=== PATIENT | female | born 1970 | race Caucasian/White ===

== ENCOUNTER 2017-06-03 13:56 | Emergency (ER) | payer OTHER | END 2017-06-03 14:18 | disposition left against medical advice (07) | LOC: DL.ED 13:56 | DX: Z53.21 Procedure and treatment not carried out due to patient leaving prior to being seen by health care provider (principal) ==

== ENCOUNTER 2017-07-07 08:50 | Day surgery (SDC) | payer BC, OTHER ==
[~2017-07-07 08:50] MED LIST: Midazolam 1 MG/ML 2 ML SDV ONE; fentaNYL 100 MCG/2 ML SDV ONE
[2017-07-07] MEDS ORDERED: Lidocaine 2% 20 ML MDV INJECT ONE (08:51)
[2017-07-07] MEDS ORDERED: Propofol 200 MG/20 ML SDV IV ONE (08:51)
[2017-07-07] MEDS ORDERED: Lactated Ringers 1,000 ML IV SCH (09:30)
--- NOTE | 2017-07-07 09:49 | PCM.PREANE ---
Preanesthetic Assessment - Procedure Proposed Procedure: Colonoscopy - Anesthesia/Transfusion/Family Hx Anesthesia History: Prior Anesthesia Without Reaction Family History of Anesthesia Reaction: No Transfusion History: No Prior Transfusion(s) Intubation History: Unknown - Review of Systems General: No Symptoms Pulmonary: No Symptoms Cardiovascular: No Symptoms Gastrointestinal: No Symptoms Neurological: No Symptoms Other: Reports: None - Physical Assessment NPO Status Date: 07/06/17 NPO Status Time: 23:00 O2 Sat by Pulse Oximetry: 98 Respiratory Rate: 16 Vital Signs: Last Vital Signs Temp 97.2 F 07/07/17 09:05 Pulse 67 07/07/17 09:05 Resp 16 07/07/17 09:05 BP 113/61 07/07/17 09:05 Pulse Ox 98 07/07/17 09:05 Height: 1.55 m Weight: 55.792 kg ASA Class: 1 Mental Status: Alert & Oriented x3 Airway Class: Mallampati = 2 Dentition: Reports: Normal Dentition Thyro-Mental Finger Breadths: 3 Mouth Opening Finger Breadths: 3 ROM/Head Extension: Full Lungs: Clear to Auscultation, Normal Respiratory Effort Cardiovascular: Regular Rate, Regular Rhythm - Allergies Allergies/Adverse Reactions: Allergies Allergy/AdvReac Type Severity Reaction Status Date / Time codeine Allergy Itching Verified 07/07/17 09:27 venom-honey bee Allergy Anaphylactic Verified 07/07/17 09:27 Shock - Blood Blood Available: No Product(s) Available: None - Anesthesia Plan Med Last Dose Date: 07/06/17 Med Last Dose Time: 20:00 - Acknowledgements Anesthesia Type Planned: General Anesthesia (R/B of general anesthesia is discussed with patient and signed consent), MAC Pt an Appropriate Candidate for the Planned Anesthesia: Yes Alternatives and Risks of Anesthesia Discussed w Pt/Guardian: Yes Pt/Guardian Understands and Agrees with Anesthesia Plan: Yes PreAnesthesia Questionnaire - Past Health History Medical/Surgical History: Denies Medical/Surgical History HEENT History: Reports: Impaired Vision Cardiovascular History: Reports: None Respiratory History: Reports: Other (See Below) Other Respiratory History: 07/06/17 PATIENT REPORTS 'SPOT' ON LUNG CT Gastrointestinal History: Reports: Chronic Diarrhea, Other (See Below) Other Gastrointestinal History: Vomiting with blood noted. Black stools Genitourinary History: Reports: None [employer] History: Reports: Polycystic Ovaries, Neurological History: Reports: None Psychiatric History: Reports: Anxiety Endocrine/Metabolic History: Reports: None Hematologic History: Reports: None Immunologic History: Reports: None Oncologic (Cancer) History: Reports: None, Uterine Dermatologic History: Reports: None - Past Surgical History Head Surgeries/Procedures: Reports: None HEENT Surgical History: Reports: None Cardiovascular Surgical History: Reports: None Respiratory Surgical History: Reports: None GI Surgical History: Reports: Appendectomy, Colonoscopy Female Surgical History: Reports: Breast Biopsy, Hysterectomy Endocrine Surgical History: Reports: None Neurological Surgical History: Reports: None Musculoskeletal Surgical History: Reports: Other (See Below) Other Musculoskeletal Surgeries/Procedures:: RIGHT FOOT ORIF D/T FRACTURE Oncologic Surgical History: Reports: Lumpectomy Dermatological Surgical History: Reports: None - SUBSTANCE USE Smoking Status *Q: Current Some Day Smoker Tobacco Use Within Last Twelve Months: Cigarettes Recreational Drug Use History: No - HOME MEDS Home Medications: Home Meds traMADol [Ultram] 1 tab PO BID PRN 07/06/17 [History] - CURRENT (IN HOUSE) MEDS Current Meds: Current Medications Lactated Ringer's (Ringers, Lactated) 1,000 mls @ 100 mls/hr IV ASDIRECTED NORMA Last Admin: 07/07/17 09:37 Dose: 100 mls/hr Discontinued Medications Fentanyl (Sublimaze) Confirm Administered Dose 200 mcg .ROUTE .STK-MED ONE Stop: 07/07/17 07:59 Midazolam HCl (Versed 1 Mg/Ml) Confirm Administered Dose 6 mg .ROUTE .STK-MED ONE Stop: 07/07/17 07:59
[2017-07-07] MEDS ORDERED: Propofol 200 MG/20 ML SDV ONE (09:50)
[2017-07-07] MEDS ORDERED: Lidocaine 2% 20 ML MDV ONE (09:50)
--- NOTE | 2017-07-07 10:43 | PCM.POSTAN ---
POST ANESTHESIA ASSESSMENT - MENTAL STATUS Mental Status: Alert, Oriented - VITAL SIGNS Pulse Rate: 80 SaO2: 99 Resp Rate: 18 Blood Pressure: 92/48 Temperature: 98.0 F - RESPIRATORY Respiratory Status: Airway Patent, O2 Saturation Stable - CARDIOVASCULAR CV Status: Pulse Rate WNL, Blood Pressure Stable - GASTROINTESTINAL GI Status: No Symptoms - PAIN Pain Score: 0 - POST OP HYDRATION Hydration Status: Adequate & Stable
[2017-07-07 12:13] VITALS: BP 114/65
--- NOTE | 2017-07-07 13:43 | OR ---
DATE: 07/07/2017 PREOPERATIVE DIAGNOSES: 1. Left lower quadrant abdominal pain. 2. Rectal bleeding/dark stools. POSTOPERATIVE DIAGNOSES: 1. Left lower quadrant abdominal pain. 2. Rectal bleeding/dark stools. 3. Normal colonoscopy. PROCEDURE: Diagnostic colonoscopy. ASSESSMENT: 1. Right colon random biopsies. 2. Transverse colon random biopsies. 3. Left colon random biopsy. 4. Rectum random biopsies. ESTIMATED BLOOD LOSS: Minimal. TYPE OF ANESTHESIA: IV sedation by Anesthesia assist. COMPLICATIONS: None. ATTENDING SURGEON: Pablo Mccartney MD [employer] FORESTER SURGEON: Jeovanny Wallis, PGY-III, . INDICATION FOR PROCEDURE: Marina Houston is a 47-year-old female who presents with continued left lower quadrant abdominal pain, who is having intermittent dark stools with blood mixed in. There is concern for intermittent change with occasional diarrhea. Last colonoscopy was 10 years ago that was normal by the patient report. The risks and benefits of the procedure were discussed with the patient and wished to proceed with surgery at this time. DETAILS OF THE PROCEDURE: The patient was brought to the procedure room, placed in the left lateral decubitus position. IV sedation was given by anesthesia. Procedural time-out was performed, and all were in agreement. The endoscope was introduced and traversed the colon to the cecum without any obvious large masses or polyps. Once in the cecum, a picture was obtained of the cecum showing confirmation. During withdrawal, random biopsies were taken. Biopsies were taken using cold forceps. Withdrawal time was over 6 minutes. Again, grossly appearing normal, without any signs of polyps or large masses present. No obvious signs of colitis present. We will await random biopsies for followup. She was transferred to PACU in stable condition. If she continues to have pain, she may require a diagnostic laparoscopy for further workup of her left lower quadrant abdominal pain. Dr. aPblo Mccartney was present and directed all portions of this procedure. [facility] /[id number] CC: Carolina Katz PA-C [facility]
== END 2017-07-07 11:40 | disposition home or self-care (01) ==
LOC: MERGE 08:50 → DL.ENDO 08:50
PROVIDERS: ATTEND Surgery
DX: K62.5 Hemorrhage of anus and rectum (principal); R10.32 Left lower quadrant pain; R19.4 Change in bowel habit; Z88.5 Allergy status to narcotic agent; Z91.030 Bee allergy status
CPT/HCPCS: 45380; J2704; J7120

== ENCOUNTER 2017-07-24 07:49 | Day surgery (SDC) | payer BC, OTHER ==
[2017-07-24] MEDS ORDERED: Neostigmine Methylsulfate 10 MG/10 ML MDV IV ONE (07:50)
[2017-07-24] MEDS ORDERED: Ondansetron 4 MG/2 ML SDV IV ONE (07:50)
[2017-07-24] MEDS ORDERED: Midazolam 1 MG/ML 2 ML SDV IV ONE (07:50)
[2017-07-24] MEDS ORDERED: Propofol 200 MG/20 ML SDV IV ONE (07:50)
[2017-07-24] MEDS ORDERED: Succinylcholine 200 MG/10 ML MDV IV ONE (07:50)
[2017-07-24] MEDS ORDERED: fentaNYL 100 MCG/2 ML SDV IV ONE (07:50)
[2017-07-24] MEDS ORDERED: Glycopyrrolate 0.2 MG/ML 2 ML SDV IV ONE (07:50)
[2017-07-24] MEDS ORDERED: Rocuronium 50 MG/5 ML Vial IV ONE (07:50)
[2017-07-24] MEDS ORDERED: Ketorolac 30 MG/ML SDV IVPUSH ONE (07:50)
[2017-07-24] MEDS ORDERED: Lactated Ringers 1,000 ML IV SCH (08:00)
[2017-07-24] MEDS ORDERED: Midazolam 1 MG/ML 2 ML SDV ONE (08:36)
[2017-07-24] MEDS ORDERED: Ketorolac 30 MG/ML SDV ONE (08:37)
[2017-07-24] MEDS ORDERED: Lidocaine 2% 20 ML MDV ONE (08:37)
[2017-07-24] MEDS ORDERED: Neostigmine Methylsulfate 10 MG/10 ML MDV ONE (08:37)
[2017-07-24] MEDS ORDERED: fentaNYL 100 MCG/2 ML SDV ONE (08:37)
[2017-07-24] MEDS ORDERED: Ondansetron 4 MG/2 ML SDV ONE (08:37)
[2017-07-24] MEDS ORDERED: Glycopyrrolate 0.2 MG/ML 2 ML SDV ONE (08:37)
[2017-07-24] MEDS ORDERED: Propofol 200 MG/20 ML SDV ONE (08:37)
[2017-07-24] MEDS ORDERED: Succinylcholine 200 MG/10 ML MDV ONE (08:38)
[2017-07-24] MEDS ORDERED: Rocuronium 50 MG/5 ML Vial ONE (08:38)
--- NOTE | 2017-07-24 13:28 | OR ---
DATE: 07/24/2017 PREOPERATIVE DIAGNOSIS: Chronic left lower quadrant abdominal pain and chronic diarrhea. POSTOPERATIVE DIAGNOSIS: Chronic left lower quadrant abdominal pain and chronic diarrhea. PROCEDURE: Diagnostic laparoscopy with multiple photos. ANESTHESIA: General. SPECIMEN: None. OPERATIVE FINDINGS: Normal. INDICATION FOR PROCEDURE: This 47-year-old female has significant left lower quadrant abdominal pain extending down into the groin. She has a CAT scan that is basically normal with a small left ovarian cyst. Colonoscopy 2 weeks ago was normal without evidence of Crohn disease or colitis as a factor for her diarrhea. PROCEDURE IN DETAIL: After adequate preparation, a 5-mm trocar was placed in the left upper quadrant after insufflation. A second 5-mm trocar was placed in the infraumbilical area. Examination of the abdomen is basically normal. Photographs of the cecum, liver, right and left ovaries, and sigmoid were taken. There is no evidence of creeping fat indicating Crohn disease. The bowel wall is not thickened either in the small or large bowel. The stomach appears to be normal. I was able to see the right and left ovary, and they do have few small cysts but nothing significant. She has had a hysterectomy. The abdomen was desufflated, and trocars were removed. [facility] /[id number]
[2017-07-24 13:35] VITALS: BP 119/64
== END 2017-07-24 12:50 | disposition home or self-care (01) ==
LOC: DL.SDS 07:49 → MERGE 07:49 → DL.SDS 12:50
PROVIDERS: ATTEND Surgery
DX: N83.201 Unspecified ovarian cyst, right side (principal); N83.202 Unspecified ovarian cyst, left side; R10.32 Left lower quadrant pain; G89.29 Other chronic pain; F17.200 Nicotine dependence, unspecified, uncomplicated; Z90.710 Acquired absence of both cervix and uterus; Z88.5 Allergy status to narcotic agent; Z91.030 Bee allergy status
CPT/HCPCS: 49320; J0330; J1885; J2250; J2405; J2704; J2710; J3010; J7120; J3490

== ENCOUNTER 2020-01-22 08:14 | Day surgery (SDC) | payer BC ==
[~2020-01-22 08:14] MED LIST changes: +Benzocaine 20% Topical Spray UD MUCMEM ONE
[2020-01-22] MEDS ORDERED: Midazolam 1 MG/ML 2 ML SDV IV ONE ×9 (08:15→09:17)
[2020-01-22] MEDS ORDERED: fentaNYL 100 MCG/2 ML SDV IV ONE ×6 (08:15→09:18)
[2020-01-22] MEDS ORDERED: Dextrose 5%-0.45% NaCl 1,000 ML IV SCH (09:00)
[2020-01-22] MEDS ORDERED: Benzocaine 20% Topical Spray UD MUCMEM ONE (09:02)
[2020-01-22 13:23] VITALS: BP 103/64; PULSE 60
--- NOTE | 2020-01-23 10:45 | OR ---
DATE: 01/22/2020 PREOPERATIVE DIAGNOSIS: Abdominal pain and history of Clostridium difficile colitis. POSTOPERATIVE DIAGNOSIS: Abdominal pain and history of Clostridium difficile colitis. PROCEDURE: Total colonoscopy. ANESTHESIA: Conscious sedation with IV Versed and fentanyl. SPECIMEN: None. OPERATIVE FINDINGS: Normal colonoscopy. INDICATIONS FOR PROCEDURE: This 49-year-old female has had postprandial especially abdominal pain. This is epigastric in nature, but she frequently has lower abdominal pain. She had apparently a bout of Clostridium difficile that was treated. She is here for a followup colonoscopy. PROCEDURE IN DETAIL: After adequate preparation, the colonoscope was inserted into the rectum. This was easily passed all the way to the cecum. Confirmation of the cecum was made by visualization of the ileocecal valve and palpation in the right lower quadrant. The bowel prep was excellent. On withdrawal of the scope, no abnormalities were noted. She has no evidence of diverticulosis, polyps, masses, ulcerations, and no evidence of colitis. Air was suctioned from the colon and the scope removed. [facility] /[id number]
--- NOTE | 2020-01-23 10:48 | OR ---
DATE: 01/22/2020 PREOPERATIVE DIAGNOSIS: Epigastric abdominal pain. POSTOPERATIVE DIAGNOSIS: Epigastric abdominal pain. PROCEDURE: Esophagogastroduodenoscopy with biopsy of pre-pyloric gastric lining. ANESTHESIA: Conscious sedation with IV Versed. SPECIMEN: H pylori specimen and permanent biopsy. INDICATIONS FOR PROCEDURE: This 49-year-old female has epigastric postprandial abdominal pain. PROCEDURE IN DETAIL: After adequate preparation, the gastroscope was inserted into the esophagus. This was passed down to the distal esophagus. She shows a small eversion of gastric mucosa, but this is of no consequence. She does not have any distal esophagitis, strictures, masses, or ulcers. The scope was advanced into the stomach. Both forward and retroflexed views were done. She does have some pre-pyloric evidence of gastritis with a few small punctate white spots within some reddened stripes. I did JENNIFER biopsy looking for H pylori and did 2-specimen biopsy for permanent section. The scope was advanced through the pylorus into the duodenum. The examination was normal. There was no evidence of ulcers. Air was suctioned from the stomach, and the scope removed. RECOMMENDATION: She does have evidence of gastritis, may consider some gastritis treatments. Otherwise, no evidence of significant ulcer. [facility] /[id number]
== END 2020-01-22 11:01 | disposition home or self-care (01) ==
LOC: DL.ENDO 08:14
PROVIDERS: ATTEND Surgery
DX: K29.50 Unspecified chronic gastritis without bleeding (principal); B96.81 Helicobacter pylori [H. pylori] as the cause of diseases classified elsewhere; R10.30 Lower abdominal pain, unspecified; F17.200 Nicotine dependence, unspecified, uncomplicated; Z88.5 Allergy status to narcotic agent; Z90.49 Acquired absence of other specified parts of digestive tract; Z87.19 Personal history of other diseases of the digestive system
CPT/HCPCS: 43239; 45378; 87077; A9270; J2250; J3010; J7042; G0121

== ENCOUNTER 2020-12-24 15:34 | Emergency (ER) | payer BC, OTHER ==
[2020-12-24] MEDS ORDERED: Sodium Chloride 0.9% 10 ML Syringe FLUSH PRN (15:37)
--- NOTE | 2020-12-24 15:38 | EDM.PDOC ---
ED HPI GENERAL MEDICAL PROBLEM - General Chief Complaint: Chest Pain Stated Complaint: CHEST PAINS Time Seen by Provider: 12/24/20 15:37 Source of Information: Reports: Patient, RN, RN Notes Reviewed History Limitations: Reports: No Limitations - History of Present Illness INITIAL COMMENTS - FREE TEXT/NARRATIVE: Pt presents to ER by POV with c/o severe sharp, jabbing middle chest pain that began yesterday. The pain doesn't seem to completely go away, but has been recurrent. 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 Denies radiating pain, shortness of breath, cough, fever, chills, N/V, acid reflux, or any other symptoms. Denies Hx of CAD, GERD, or pleurisy. Onset: Sudden Onset Date: 12/23/20 Duration: Intermittent, Waxing/Waning Location: Reports: Chest Quality: Reports: Sharp, Stabbing Severity: Severe Improves with: Reports: None Worsens with: Reports: None Associated Symptoms: Reports: No Other Symptoms Chest Pain Score (Numeric/FACES): 8 - Related Data Allergies Allergy/AdvReac Type Severity Reaction Status Date / Time codeine Allergy Itching Verified 01/22/20 08:35 diphenhydramine HCl Allergy Swollen Verified 01/22/20 08:35 [From Benadryl] Tongue milk Allergy Abdominal Verified 01/22/20 08:35 Cramps venom-honey bee Allergy Seizure Verified 01/22/20 08:35 [bee venom (honey bee)] opoids Allergy Itching Uncoded 01/22/20 08:35 Home Meds: Home Meds EPINEPHrine [Epinephrine] 1 injection SQ .PRN PRN 01/21/20 [History] Ibuprofen 800 mg PO DAILY PRN 01/21/20 [History] Past Medical History - Past Health History Medical/Surgical History: Denies Medical/Surgical History HEENT History: Reports: Impaired Vision, Sinusitis Other HEENT History: Upper and lower dentures. Wears glasses Cardiovascular History: Reports: None Respiratory History: Reports: Bronchitis, Recurrent, Other (See Below) Other Respiratory History: 07/06/17 PATIENT REPORTS 'SPOT' ON LUNG CT Gastrointestinal History: Reports: Chronic Diarrhea, Helicobacter Pylori, Other (See Below) Other Gastrointestinal History: Vomiting with blood noted. Black stools Genitourinary History: Reports: None [employer] History: Reports: Polycystic Ovaries, Musculoskeletal History: Reports: Fracture Neurological History: Reports: Headaches, Chronic Psychiatric History: Reports: Anxiety, Panic Attack, Other (See Below) Other Psychiatric History: insomnia Endocrine/Metabolic History: Reports: None Hematologic History: Reports: Anemia Immunologic History: Reports: None Oncologic (Cancer) History: Reports: Breast, Uterine Dermatologic History: Reports: None - Infectious Disease History Infectious Disease History: Reports: Chicken Pox, Measles, Mumps, Shingles - Past Surgical History Head Surgeries/Procedures: Reports: None HEENT Surgical History: Reports: None Cardiovascular Surgical History: Reports: None Respiratory Surgical History: Reports: None GI Surgical History: Reports: Appendectomy, Colonoscopy Female Surgical History: Reports: Breast Biopsy, Hysterectomy, Other (See Below) Other Female Surgeries/Procedures: wedge resection right breast ([place]) Endocrine Surgical History: Reports: None Neurological Surgical History: Reports: None Musculoskeletal Surgical History: Reports: Other (See Below) Other Musculoskeletal Surgeries/Procedures:: RIGHT FOOT ORIF D/T FRACTURE Oncologic Surgical History: Reports: Biopsy of Breast, Lumpectomy Dermatological Surgical History: Reports: None Social & Family History - Family History Family Medical History: No Pertinent Family History - Caffeine Use Caffeine Use: Reports: Coffee Other Caffeine Use: 1 LARGE COFFEE IN AM. SODA POP 16 OZ DAILY - Living Situation & Occupation Living situation: Reports: with Family Occupation: Employed ED ROS GENERAL - Review of Systems Review Of Systems: Comprehensive ROS is negative, except as noted in HPI. ED EXAM, GENERAL - Physical Exam Exam: See Below Exam Limited By: No Limitations General Appearance: Alert, WD/WN, No Apparent Distress Eye Exam: Bilateral Eye: EOMI, Normal Inspection, PERRL Ears: Normal External Exam, Normal Canal, Hearing Grossly Normal, Normal TMs Nose: Normal Inspection, Normal Mucosa, No Blood Throat/Mouth: Normal Inspection, Normal Lips, Normal Teeth, Normal Gums, Normal Oropharynx, Normal Voice, No Airway Compromise Head: Atraumatic, Normocephalic Neck: Normal Inspection, Supple, Non-Tender, Full Range of Motion Respiratory/Chest: No Respiratory Distress, Lungs Clear, Normal Breath Sounds, No Accessory Muscle Use, Chest Non-Tender Cardiovascular: Normal Peripheral Pulses, Regular Rate, Rhythm, No Edema, No Gallop, No JVD, No Murmur, No Rub GI/Abdominal: Normal Bowel Sounds, Soft, Non-Tender, No Organomegaly, No Distention, No Abnormal Bruit, No Mass (Female) Exam: Deferred Rectal (Female) Exam: Deferred Back Exam: Normal Inspection, Full Range of Motion, NT Extremities: Normal Inspection, Normal Range of Motion, Non-Tender, Normal Capillary Refill, No Pedal Edema Neurological: Alert, Oriented, CN II-XII Intact, Normal Cognition, Normal Gait, Normal Reflexes, No Motor/Sensory Deficits Psychiatric: Normal Affect, Normal Mood Skin Exam: Warm, Dry, Intact, Normal Color, No Rash #1 Interpretation EKG Date: 12/24/20 Time: 15:44 Rhythm: Other (sinus rhythm) Rate (Beats/Min): 73 [place]: Normal P-Wave: Present QRS: Normal ST-T: Normal QT: Normal Comparison: NA - No Prior EKG Course - Vital Signs Last Recorded V/S: Last Vital Signs Temp 97.4 F 12/24/20 16:00 Pulse 71 12/24/20 16:00 Resp 20 12/24/20 16:00 BP 121/80 12/24/20 16:00 Pulse Ox 100 12/24/20 16:00 - Orders/Labs/Meds Orders: Active Orders 24 hr Category Date Time Status EKG 12 Lead [EKG Documentation Completion] [RC] STAT Care 12/24/20 15:38 Active Peripheral IV Care [RC] . DIRECTED Care 12/24/20 15:38 Active D Dimer [D-DIMER QUANTITATIVE] [COAG] Stat Lab 12/24/20 15:43 Results INR,PT,PROTHROMBIN TIME [COAG] Stat Lab 12/24/20 15:43 Results PTT,PARTIAL THROMBOPLSTIN TIME [COAG] Stat Lab 12/24/20 15:43 Results Nitroglycerin [Nitrostat] Med 12/24/20 15:39 Active 0.4 mg SL Q5M PRN Sodium Chloride 0.9% [Saline Flush] Med 12/24/20 15:37 Active 10 ml FLUSH ASDIRECTED PRN Peripheral IV Insertion Adult [OM.PC] Stat Oth 12/24/20 15:38 Ordered Medication Orders Nitroglycerin (Nitrostat) 0.4 mg SL Q5M PRN PRN Reason: Chest Pain Last Admin: 12/24/20 15:55 Dose: 0.4 mg Documented by: KARRIE Sodium Chloride (Saline Flush) 10 ml FLUSH ASDIRECTED PRN PRN Reason: Keep Vein Open Last Admin: 12/24/20 16:06 Dose: 10 ml Documented by: ALEXI Labs: Laboratory Tests 12/24/20 12/24/20 12/24/20 Range/Units 15:43 15:43 15:43 WBC 7.7 (5.0-10.0) 10^3/uL RBC 4.56 (4.2-5.4) 10^6/uL Hgb 13.6 (12.0-16.0) g/dL Hct 40.3 (37.0-47.0) % MCV 88.4 (80-100) fL MCH 29.8 (27.0-34.0) pg MCHC 33.7 (33.0-35.0) g/dL Plt Count 319 (150-450) 10^3/uL Neut % (Auto) 46.2 (42.2-75.2) % Lymph % (Auto) 42.3 (20.5-50.1) % [place] % (Auto) 8.7 H (2-8) % Eos % (Auto) 2.3 (1.0-3.0) % Baso % (Auto) 0.5 (0.0-1.0) % D-Dimer, Quantitative < 100 (0-400) ng/mL Sodium 139 (136-145) mmol/L Potassium 3.5 (3.5-5.1) mmol/L Chloride 99 (98-107) mmol/L Carbon Dioxide 29 (21-32) mmol/L Anion Gap 14.5 H (7-13) mEq/L BUN 17 (7-18) mg/dL Creatinine 0.68 (0.55-1.02) mg/dL Est Cr Clr Drug Dosing 78.28 mL/min Estimated GFR (MDRD) > 60 BUN/Creatinine Ratio 25.0 (No establ ref range) Glucose 87 (74-99) mg/dL Calcium 9.2 (8.5-10.1) mg/dL Total Bilirubin 0.3 (0.2-1.0) mg/dL AST 23 (15-37) U/L ALT 38 (14-59) U/L Alkaline Phosphatase 62 (46-116) U/L Troponin I < 0.017 (0.000-0.056) ng/mL B-Natriuretic Peptide < 5 (0-100) pg/ml Total Protein 7.1 (6.4-8.2) g/dL Albumin 3.9 (3.4-5.0) g/dL Globulin 3.2 Albumin/Globulin Ratio 1.2 Amylase 84 (25-115) U/L Lipase 86 (73-393) U/L Meds: Medications Generic Name Dose Route Start Last Admin Trade Name Freq PRN Reason Stop Dose Admin Nitroglycerin 0.4 mg 12/24/20 15:39 12/24/20 15:55 Nitrostat SL 0.4 mg Q5M PRN Administration Chest Pain Sodium Chloride 10 ml 12/24/20 15:37 12/24/20 16:06 Saline Flush FLUSH 10 ml ASDIRECTED PRN Administration Keep Vein Open Discontinued Medications Generic Name Dose Route Start Last Admin Trade Name Freq PRN Reason Stop Dose Admin Al Hydroxide/Mg Hydroxide 30 ml 12/24/20 16:58 12/24/20 17:02 Gi Cocktail PO 12/24/20 16:59 30 ml ONETIME ONE Administration Aspirin 324 mg 12/24/20 15:39 12/24/20 15:53 Aspirin PO 12/24/20 15:40 324 mg ONETIME ONE Administration - Radiology Interpretation Free Text/Narrative:: Chest x-ray: Noo acute new cardiopulmonary abnormality. Normal cardiac silhouette i.e. size and configuration. No pulmonary vascular congestion, cephalization of flow, alveolar edema or dependent pleural effusion. No new lung mass or hilar lymphadenopathy. No focal lobar alveolar consolidation, ateletasis or collapse. No peripheral "groundglass" interstitial lung densities. No pneumothorax or pneumomediastinum. No free subdiaphragmatic air. See rad report. - Re-Assessments/Exams Free Text/Narrative Re-Assessment/Exam: 12/24/20 17:32 Pt has ruled herself out by virtue of chest pain >24hours with normal EKG, negative troponin, and non-elevated d-dimer, and negative chest x-ray. Plan to d/c pt home with 3 weeks of Protonix, and recommendation to f/u in clinic for an outpt. cardiac stress test. Departure - Departure Time of Disposition: 17:34 Disposition: Home, Self-Care 01 Condition: Good Clinical Impression: Non-cardiac chest pain Instructions: Nonspecific Chest Pain, Adult, Esophageal Spasm Forms: ED Department Discharge Additional Instructions: Rx: Protonix 40mg Follow up in clinic next week for recheck and consideration of cardiac stress test. Sepsis Event Note (ED) - Focused Exam Vital Signs: Vital Signs Temp Pulse Resp BP BP Pulse Ox 12/24/20 16:00 97.4 F 71 20 121/80 100 12/24/20 15:55 121/80 - My Orders Last 24 Hours: My Active Orders 12/24/20 15:37 Sodium Chloride 0.9% [Saline Flush] 10 ml FLUSH ASDIRECTED PRN 12/24/20 15:38 EKG 12 Lead [EKG Documentation Completion] [RC] STAT Peripheral IV Care [RC] . DIRECTED Peripheral IV Insertion Adult [OM.PC] Stat 12/24/20 15:39 Nitroglycerin [Nitrostat] 0.4 mg SL Q5M PRN 12/24/20 15:43 D Dimer [D-DIMER QUANTITATIVE] [COAG] Stat INR,PT,PROTHROMBIN TIME [COAG] Stat PTT,PARTIAL THROMBOPLSTIN TIME [COAG] Stat - Assessment/Plan Last 24 Hours: My Active Orders 12/24/20 15:37 Sodium Chloride 0.9% [Saline Flush] 10 ml FLUSH ASDIRECTED PRN 12/24/20 15:38 EKG 12 Lead [EKG Documentation Completion] [RC] STAT Peripheral IV Care [RC] . DIRECTED Peripheral IV Insertion Adult [OM.PC] Stat 12/24/20 15:39 Nitroglycerin [Nitrostat] 0.4 mg SL Q5M PRN 12/24/20 15:43 D Dimer [D-DIMER QUANTITATIVE] [COAG] Stat INR,PT,PROTHROMBIN TIME [COAG] Stat PTT,PARTIAL THROMBOPLSTIN TIME [COAG] Stat
[2020-12-24] MEDS ORDERED: Nitroglycerin 0.4 MG Tab.SL SL PRN (15:39)
[2020-12-24] MEDS ORDERED: Aspirin 81 MG Tab.Chew PO ONE (15:39)
[2020-12-24 15:56] VITALS: BP 121/80
--- NOTE | 2020-12-24 16:00 | CR ---
EXAMINATION: Chest 1V Frontal SEX: Female AGE: 50 years CLINICAL HISTORY: 50-year-old chest pain. Comparison exam 29 May 2018. Interpretation: No acute new cardiopulmonary abnormality. (External cardiac surgeon leads) Normal cardiac silhouette i.e. size and configuration. No pulmonary vascular congestion, cephalization of flow, alveolar edema or dependent pleural effusion. No new lung mass or hilar lymphadenopathy. No focal lobar alveolar consolidation, atelectasis or collapse. No peripheral "groundglass" interstitial lung densities. No pneumothorax or pneumomediastinum. No free subdiaphragmatic air.
[2020-12-24 16:05] VITALS: PULSE 71
[2020-12-24 16:34] LABS: ANION GAP 14.5 mEq/L (7-13); CHLORIDE,CL 99 mmol/L (98-107); SODIUM,NA 139 mmol/L (136-145)
[2020-12-24] MEDS ORDERED: GI Cocktail Oral Solution 30 ML PO ONE (16:58)
[2020-12-24 17:36] LABS: PTT,PARTIAL THROMBOPLSTIN TIME 24.5 SEC (22.0-34.0)
== END 2020-12-24 17:42 | disposition home or self-care (01) ==
LOC: DL.ED 15:34
DX: R07.89 Other chest pain (principal); Z88.5 Allergy status to narcotic agent; Z88.8 Allergy status to other drugs, medicaments and biological substances; Z91.011 Allergy to milk products; Z91.030 Bee allergy status
CPT/HCPCS: 36415; 71045; 80053; 82150; 83690; 83880; 84484; 85025; 85379; 85610; 85730; 93005; 99285; A9270; 93010; 99284

== ENCOUNTER 2021-03-12 22:34 | Emergency (ER) | payer OTHER ==
[2021-03-12] MEDS ORDERED: HYDROmorphone 0.5 MG/0.5 ML Syringe IVPUSH ONE (23:17)
--- NOTE | 2021-03-12 23:26 | EDM.PDOC ---
"ED HPI GENERAL MEDICAL PROBLEM - General Chief Complaint: Back Pain or Injury Stated Complaint: PAIN LOWER BACK & BOTH SIDES SWALLON Time Seen by Provider: 03/12/21 23:15 Source of Information: Reports: Patient History Limitations: Reports: No Limitations - History of Present Illness INITIAL COMMENTS - FREE TEXT/NARRATIVE: This 50 yo female patient reports to the ED with lower back pain. The patient reports her symptoms started on 03/04/21 and have been getting worse. The patient was seen in the [facility] twice. During the first visit, the patient was started on a muscle relaxer and naproxen. With no changes in her symptoms, the patient was seen a second time. During the second visit, the patient reports blood was detected in her urine. The patient was scheduled for a CT on 03/16/21. The patient has also been seen by her chiropractor and had adjustments. The patient reports she was up and moving around more today. The patient was at work this evening when her lower back pain started getting worse. The patient reports she does have some pain shooting down into her right buttocks at this time. The patient took naproxen and her muscle relaxer at about 1800. The patient denies any pain with urination. Onset Date: 03/04/21 Duration: Constant, Getting Worse Location: Reports: Back (lower back) Quality: Reports: Ache, Sharp, Stabbing Severity: Severe Improves with: Reports: None Worsens with: Reports: None Context: Reports: Other Associated Symptoms: Reports: No Other Symptoms Bilateral Flank Pain Score (Numeric/FACES): 10 - Related Data Allergies Allergy/AdvReac Type Severity Reaction Status Date / Time codeine Allergy Itching Verified 01/22/20 08:35 diphenhydramine HCl Allergy Swollen Verified 01/22/20 08:35 [From Benadryl] Tongue milk Allergy Abdominal Verified 01/22/20 08:35 Cramps venom-honey bee Allergy Seizure Verified 01/22/20 08:35 [bee venom (honey bee)] opoids Allergy Itching Uncoded 01/22/20 08:35 Home Meds: Home Meds EPINEPHrine [Epinephrine] 1 injection SQ .PRN PRN 01/21/20 [History] Ibuprofen 800 mg PO DAILY PRN 01/21/20 [History] Naproxen 03/12/21 [History] methocarbamoL [Methocarbamol] 03/12/21 [History] Past Medical History - Past Health History Medical/Surgical History: Denies Medical/Surgical History HEENT History: Reports: Impaired Vision, Sinusitis Other HEENT History: Upper and lower dentures. Wears glasses Cardiovascular History: Reports: None Respiratory History: Reports: Bronchitis, Recurrent, Other (See Below) Other Respiratory History: 07/06/17 PATIENT REPORTS 'SPOT' ON LUNG CT Gastrointestinal History: Reports: Chronic Diarrhea, Helicobacter Pylori, Other (See Below) Other Gastrointestinal History: Vomiting with blood noted. Black stools Genitourinary History: Reports: None [employer] History: Reports: Polycystic Ovaries, Musculoskeletal History: Reports: Fracture Neurological History: Reports: Headaches, Chronic Psychiatric History: Reports: Anxiety, Panic Attack, Other (See Below) Other Psychiatric History: insomnia Endocrine/Metabolic History: Reports: None Hematologic History: Reports: Anemia Immunologic History: Reports: None Oncologic (Cancer) History: Reports: Breast, Uterine Dermatologic History: Reports: None - Infectious Disease History Infectious Disease History: Reports: Chicken Pox, Measles, Mumps, Shingles - Past Surgical History Head Surgeries/Procedures: Reports: None HEENT Surgical History: Reports: None Cardiovascular Surgical History: Reports: None Respiratory Surgical History: Reports: None GI Surgical History: Reports: Appendectomy, Colonoscopy Female Surgical History: Reports: Breast Biopsy, Hysterectomy, Other (See Below) Other Female Surgeries/Procedures: wedge resection right breast (CA) Endocrine Surgical History: Reports: None Neurological Surgical History: Reports: None Musculoskeletal Surgical History: Reports: Other (See Below) Other Musculoskeletal Surgeries/Procedures:: RIGHT FOOT ORIF D/T FRACTURE Oncologic Surgical History: Reports: Biopsy of Breast, Lumpectomy Dermatological Surgical History: Reports: None Social & Family History - Family History Family Medical History: No Pertinent Family History - Tobacco Use Tobacco Use Status *Q: Current Every Day Tobacco User Years of Tobacco use: 30 Packs/Tins Daily: 0.5 - Caffeine Use Caffeine Use: Reports: Coffee Other Caffeine Use: 1 LARGE COFFEE IN AM. SODA POP 16 OZ DAILY - Recreational Drug Use Recreational Drug Use: No - Living Situation & Occupation Living situation: Reports: with Family Occupation: Employed ED ROS GENERAL - Review of Systems Review Of Systems: Comprehensive ROS is negative, except as noted in HPI. ED EXAM,LOWER BACK PAIN/INJURY - Physical Exam Exam: See Below Exam Limited By: No Limitations General Appearance: Alert, WD/WN, Moderate Distress Eye Exam: Bilateral Eye: EOMI, Normal Inspection, PERRL Ears: Normal External Exam, Normal Canal, Hearing Grossly Normal, Normal TMs Nose: Normal Inspection, Normal Mucosa, No Blood Throat/Mouth: Normal Inspection, Normal Lips, Normal Teeth, Normal Gums, Normal Oropharynx, Normal Voice, No Airway Compromise Head: Atraumatic, Normocephalic Neck: Normal Inspection, Supple, Non-Tender, Full Range of Motion Respiratory/Chest: No Respiratory Distress, Lungs Clear, Normal Breath Sounds, No Accessory Muscle Use, Chest Non-Tender Cardiovascular: Normal Peripheral Pulses, Regular Rate, Rhythm, No Edema, No Gallop, No JVD, No Murmur, No Rub GI/Abdominal: Normal Bowel Sounds, Soft, Non-Tender, No Organomegaly, No Distention, No Abnormal Bruit, No Mass (Female) Exam: Deferred Rectal (Female) Exam: Deferred Back Exam: Decreased Range of Motion, Paraspinal Tenderness, Vertebral Tenderness Extremities: Normal Inspection, Limited Range of Motion (due to lower back pain) Neurological: Alert, Normal Mood/Affect, Normal Dorsiflexion, CN II-XII Intact, Normal Plantar Flexion, Normal Gait, Normal Reflexes, No Motor/Sensory Deficits, Oriented x 3 Psychiatric: Normal Affect, Normal Mood Skin Exam: Warm, Dry, Intact, Normal Color, No Rash Lymphatic: No Adenopathy Course - Vital Signs Last Recorded V/S: Last Vital Signs Temp 36.3 C 03/12/21 23:06 Pulse 90 03/12/21 23:06 Resp 18 03/12/21 23:06 BP 152/76 H 03/12/21 23:06 Pulse Ox 100 03/12/21 23:06 - Orders/Labs/Meds Orders: Active Orders 24 hr Category Date Time Status Lumbar Spine wo Cont [CT] Urgent Exams 03/13/21 00:20 Taken Sodium Chloride 0.9% @ 125 MLS/HR (1000ml) Med 03/12/21 23:30 Ordered Sodium Chloride 0.9% [Normal Saline] 1,000 ml IV ASDIRECTED Medication Orders Sodium Chloride (Normal Saline) 1,000 mls @ 125 mls/hr IV ASDIRECTED NORMA Last Admin: 03/12/21 23:26 Dose: 125 mls/hr Documented by: BEN Labs: Laboratory Tests 03/12/21 03/12/21 03/12/21 Range/Units 23:14 23:15 23:15 WBC 13.2 H (5.0-10.0) 10^3/uL RBC 4.41 (4.2-5.4) 10^6/uL Hgb 13.3 (12.0-16.0) g/dL Hct 39.2 (37.0-47.0) % MCV 88.9 (80-100) fL MCH 30.2 (27.0-34.0) pg MCHC 33.9 (33.0-35.0) g/dL Plt Count 296 (150-450) 10^3/uL Neut % (Auto) 62.2 (42.2-75.2) % Lymph % (Auto) 28.4 (20.5-50.1) % [place] % (Auto) 7.6 (2-8) % Eos % (Auto) 1.6 (1.0-3.0) % Baso % (Auto) 0.2 (0.0-1.0) % Sodium 138 (136-145) mmol/L Potassium 3.9 (3.5-5.1) mmol/L Chloride 100 (98-107) mmol/L Carbon Dioxide 28 (21-32) mmol/L Anion Gap 13.9 H (7-13) mEq/L BUN 13 (7-18) mg/dL Creatinine 0.65 (0.55-1.02) mg/dL Est Cr Clr Drug Dosing 81.89 mL/min Estimated GFR (MDRD) > 60 BUN/Creatinine Ratio 20.0 (No establ ref range) Glucose 90 (70-99) mg/dL Calcium 8.8 (8.5-10.1) mg/dL Total Bilirubin 0.4 (0.2-1.0) mg/dL AST 16 (15-37) U/L ALT 20 (14-59) U/L Alkaline Phosphatase 66 (46-116) U/L Total Protein 6.7 (6.4-8.2) g/dL Albumin 4.0 (3.4-5.0) g/dL Globulin 2.7 Albumin/Globulin Ratio 1.5 Urine Color Dark yellow (YELLOW) Urine Appearance Slightly cloudy (CLEAR) Urine pH 6.0 (5.0-9.0) Ur Specific [place] 1.020 (1.005-1.030) Urine Protein 30 H (NEGATIVE) Urine Glucose (UA) Negative (NEGATIVE) Urine Ketones Negative (NEGATIVE) Urine Occult Blood Moderate H (NEGATIVE) Urine Nitrite Negative (NEGATIVE) Urine Bilirubin Negative (NEGATIVE) Urine Urobilinogen 0.2 (0.2-1.0) mg/dL Ur Leukocyte Esterase Negative (NEGATIVE) Urine RBC 20-30 H /HPF Urine WBC 0-5 (0-5/HPF) /HPF Ur Epithelial Cells Moderate H (NOT SEEN) /HPF Urine Bacteria Moderate H (0-FEW/HPF) /HPF Meds: Medications Generic Name Dose Route Start Last Admin Trade Name Freq PRN Reason Stop Dose Admin Sodium Chloride 1,000 mls @ 125 mls/hr 03/12/21 23:30 03/12/21 23:26 Normal Saline IV 125 mls/hr ASDIRECTED NORMA Administration Discontinued Medications Generic Name Dose Route Start Last Admin Trade Name Freq PRN Reason Stop Dose Admin Hydromorphone HCl 0.5 mg 03/12/21 23:17 03/12/21 23:27 Hydromorphone 0.5 Mg/0.5 Ml Syringe IVPUSH 03/12/21 23:18 0.5 mg ONETIME ONE Administration Iopamidol 100 ml 03/12/21 23:44 03/13/21 00:17 Iopamidol 612 Mg/Ml 100 Ml Bottle IVPUSH 03/12/21 23:45 100 ml ONETIME ONE Administration - Radiology Interpretation Free Text/Narrative:: [facility] Final Radiology Report Call: [phone] assistance Online chat: [email or web address] Name: ROSIE CRESPO Age: 50Years F Date: 03/13/2021 SSN: -- : 1970 Study: CT LUMBAR SPINE WO CONT Requesting Physician: Donald Ashby Images: [id number] Addl Studies: Provided Clinical History: Low back pain Contrast: Without Contrast Medium: Contrast Amount: Contrast Method: CONFIDENTIALITY STATEMENT This report is intended only for use by the referring physician, and only in accordance with law. If you received this in error, call [phone]. Page 1 of 1 PROCEDURE INFORMATION: Exam: CT Lumbar Spine Without Contrast Exam date and time: 03/13/2021 12:34 AM Age: 50 years old Clinical indication: Other: No trauma; Additional info: Low back pain TECHNIQUE: Imaging protocol: Computed tomography images of the lumbar spine without contrast. Radiation optimization: All CT scans at this facility use at least one of these dose optimization techniques: automated exposure control; mA and/or kV adjustment per patient size (includes targeted exams where dose is matched to clinical indication); or iterative reconstruction. COMPARISON: No relevant prior studies available. FINDINGS: Vertebrae: No acute fracture. Normal alignment. Discs/Spinal canal/Neural foramina: No significant disc protrusion. No severe spinal canal stenosis. No significant neural foraminal narrowing. Soft tissues: Unremarkable. IMPRESSION: No acute osseous findings. Thank you for allowing us to participate in the care of your patient. Dictated and Authenticated by: Margarito Martino MD 03/13/2021 1:27 AM Central Time ([place] & [place]) [facility] Final Radiology Report Call: [phone] assistance Online chat: [email or web address] Name: ROSIE CRESPO Age: 50Years F Date: 03/13/2021 SSN: -- : 1970 Study: CT ABDOMEN PELVIS W WO CONT Requesting Physician: Donald Ashby Images: [id number] Addl Studies: Provided Clinical History: Low back pain Contrast: Both Contrast Medium: Contrast Amount: 75 mL Contrast Method: Intravenous (IV) Page 1 of 2 PROCEDURE INFORMATION: Exam: CT Abdomen And Pelvis Without And With Contrast Exam date and time: 03/13/2021 12:21 AM Age: 50 years old Clinical indication: Other: Hematuria, wbc 13.2; Additional info: Low back pain TECHNIQUE: Imaging protocol: Computed tomography of the abdomen and pelvis without and with contrast. Radiation optimization: All CT scans at this facility use at least one of these dose optimization techniques: automated exposure control; mA and/or kV adjustment per patient size (includes targeted exams where dose is matched to clinical indication); or iterative reconstruction. Contrast material: [id number]; Contrast volume: 75 ml; Contrast route: INTRAVENOUS (IV); COMPARISON: No relevant prior studies available. FINDINGS: Liver: Normal. No mass. Gallbladder and bile ducts: Normal. No calcified stones. No ductal dilation. Pancreas: Normal. No ductal dilation. Spleen: Normal. No splenomegaly. Adrenal glands: Normal. No mass. Kidneys and ureters: Normal. No hydronephrosis. Stomach and bowel: Unremarkable. No obstruction. No mucosal thickening. Appendix: No evidence of appendicitis. Intraperitoneal space: Unremarkable. No free air. No significant fluid collection. Vasculature: Unremarkable. No abdominal aortic aneurysm. Lymph nodes: Unremarkable. No enlarged lymph nodes. Urinary bladder: Unremarkable as visualized. ROSIE CRESPO | Final Radiology Report CONFIDENTIALITY STATEMENT This report is intended only for use by the referring physician, and only in accordance with law. If you received this in error, call [phone]. Page 2 of 2 Reproductive: Status post hysterectomy. Bones/joints: Unremarkable. No acute fracture. Soft tissues: Unremarkable. IMPRESSION: There are no acute abdominal findings. Thank you for allowing us to participate in the care of your patient. Dictated and Authenticated by: Margarito Martino MD 03/13/2021 1:26 AM Central Time ([place] & [place]) Departure - Departure Time of Disposition: 01:37 Disposition: Home, Self-Care 01 Condition: Fair Clinical Impression: Low back pain Qualifiers: Chronicity: acute Back pain laterality: bilateral Sciatica presence: with sciatica Sciatica laterality: sciatica of right side Qualified Code(s): M54.41 - Lumbago with sciatica, right side - Discharge Information *PRESCRIPTION DRUG MONITORING PROGRAM REVIEWED*: Not Applicable *COPY OF PRESCRIPTION DRUG MONITORING REPORT IN PATIENT HARRY: Not Applicable Instructions: Pain Medicine Instructions, [id number], Acute Back Pain, Adult Forms: ED Department Discharge Care Plan Goals: The patient was advised of the examination, lab and CT results during the visit. The patient was given IV Dilaudid, IV SoluMedrol (steroid) and IV fluids while in the ED. The patient was discharged with a script for Prednisone (20 mg) #10 to take 2 by mouth daily for 5 days and Alkol (5/325) #10 to take 1 by mouth every 6 hours as needed for pain. The patient was encouraged to follow-up with her primary care facility early next week. If the patient has any additional symptoms or concerns, the patient should either return to the emergency department or visit her primary care facility. Sepsis Event Note (ED) - Evaluation Sepsis Screening Result: No Definite Risk - Focused Exam Vital Signs: Vital Signs Temp Pulse Resp BP Pulse Ox 03/12/21 23:06 36.3 C 90 18 152/76 H 100 - My Orders Last 24 Hours: My Active Orders 03/12/21 23:30 Sodium Chloride 0.9% @ 125 MLS/HR (1000ml) Sodium Chloride 0.9% [Normal Saline] 1,000 ml IV ASDIRECTED 03/13/21 00:20 Lumbar Spine wo Cont [CT] Urgent - Assessment/Plan Last 24 Hours: My Active Orders 03/12/21 23:30 Sodium Chloride 0.9% @ 125 MLS/HR (1000ml) Sodium Chloride 0.9% [Normal Saline] 1,000 ml IV ASDIRECTED 03/13/21 00:20 Lumbar Spine wo Cont [CT] Urgent"
[2021-03-12] MEDS ORDERED: Sodium Chloride 0.9% 1,000 ML IV SCH (23:30)
[2021-03-12 23:38] LABS: ANION GAP 13.9 mEq/L (7-13); CHLORIDE,CL 100 mmol/L (98-107); SODIUM,NA 138 mmol/L (136-145)
[2021-03-12] MEDS ORDERED: Iopamidol 612 MG/ML 100 ML Bottle IVPUSH ONE (23:44)
--- NOTE | 2021-03-13 01:26 | CT ---
PROCEDURE INFORMATION: Exam: CT Abdomen And Pelvis Without And With Contrast Exam date and time: 03/13/2021 12:21 AM Age: 50 years old Clinical indication: Other: Hematuria, wbc 13.2; Additional info: Low back pain TECHNIQUE: Imaging protocol: Computed tomography of the abdomen and pelvis without and with contrast. Radiation optimization: All CT scans at this facility use at least one of these dose optimization techniques: automated exposure control; mA and/or kV adjustment per patient size (includes targeted exams where dose is matched to clinical indication); or iterative reconstruction. Contrast material: [id number]; Contrast volume: 75 ml; Contrast route: INTRAVENOUS (IV); COMPARISON: No relevant prior studies available. FINDINGS: Liver: Normal. No mass. Gallbladder and bile ducts: Normal. No calcified stones. No ductal dilation. Pancreas: Normal. No ductal dilation. Spleen: Normal. No splenomegaly. Adrenal glands: Normal. No mass. Kidneys and ureters: Normal. No hydronephrosis. Stomach and bowel: Unremarkable. No obstruction. No mucosal thickening. Appendix: No evidence of appendicitis. Intraperitoneal space: Unremarkable. No free air. No significant fluid collection. Vasculature: Unremarkable. No abdominal aortic aneurysm. Lymph nodes: Unremarkable. No enlarged lymph nodes. Urinary bladder: Unremarkable as visualized. Reproductive: Status post hysterectomy. Bones/joints: Unremarkable. No acute fracture. Soft tissues: Unremarkable. IMPRESSION: There are no acute abdominal findings.
--- NOTE | 2021-03-13 01:27 | CT ---
PROCEDURE INFORMATION: Exam: CT Lumbar Spine Without Contrast Exam date and time: 03/13/2021 12:34 AM Age: 50 years old Clinical indication: Other: No trauma; Additional info: Low back pain TECHNIQUE: Imaging protocol: Computed tomography images of the lumbar spine without contrast. Radiation optimization: All CT scans at this facility use at least one of these dose optimization techniques: automated exposure control; mA and/or kV adjustment per patient size (includes targeted exams where dose is matched to clinical indication); or iterative reconstruction. COMPARISON: No relevant prior studies available. FINDINGS: Vertebrae: No acute fracture. Normal alignment. Discs/Spinal canal/Neural foramina: No significant disc protrusion. No severe spinal canal stenosis. No significant neural foraminal narrowing. Soft tissues: Unremarkable. IMPRESSION: No acute osseous findings.
[2021-03-13] MEDS ORDERED: methylPREDNISolone Sodium Succinate 125 MG/2 ML SDV IVPUSH ONE (01:34)
[2021-03-13] MEDS ORDERED: HYDROmorphone 0.5 MG/0.5 ML Syringe IVPUSH ONE (01:34)
[2021-03-13 01:46] VITALS: BP 132/78; PULSE 62
== END 2021-03-13 02:03 | disposition home or self-care (01) ==
LOC: DL.ED 22:34
DX: M54.41 Lumbago with sciatica, right side (principal); Z88.5 Allergy status to narcotic agent; Z88.8 Allergy status to other drugs, medicaments and biological substances; Z91.011 Allergy to milk products; Z91.030 Bee allergy status; Z79.899 Other long term (current) drug therapy; Z72.0 Tobacco use
CPT/HCPCS: 36415; 72131; 74178; 80053; 81001; 85025; 96374; 96375; 96376; 99283; 99284; J1170; J2930; J7030; Q9967

== ENCOUNTER 2022-01-20 11:22 | Emergency (ER) | payer OTHER ==
[2022-01-20 11:39] VITALS: BP 132/91; PULSE 86
[2022-01-20] MEDS ORDERED: Ketorolac 30 MG/ML SDV IM ONE (12:22)
[2022-01-20] MEDS ORDERED: Bacitracin Oint 1 GM U/D Packet TOP ONE (12:23)
== END 2022-01-20 13:20 | disposition home or self-care (01) ==
LOC: DL.ED 11:22
DX: S80.02XA Contusion of left knee, initial encounter (principal); S80.01XA Contusion of right knee, initial encounter; S60.211A Contusion of right wrist, initial encounter; S60.212A Contusion of left wrist, initial encounter; S90.512A Abrasion, left ankle, initial encounter; Z88.5 Allergy status to narcotic agent; Z91.030 Bee allergy status; Z91.011 Allergy to milk products; Z88.8 Allergy status to other drugs, medicaments and biological substances; W01.0XXA Fall on same level from slipping, tripping and stumbling without subsequent striking against object, initial encounter
CPT/HCPCS: 73110; 73562; 73590; 73610; 96372; 99283; J1885

== ENCOUNTER 2023-12-22 13:28 | Emergency (ER) | payer OTHER ==
[2023-12-22 14:03] VITALS: BP 156/76; PULSE 78
[2023-12-22 15:46] LABS: BASOPHILS PERCENT AUTO 0.7 % (0.0-1.0); EOSINOPHILS PERCENT AUTO 5.8 % (1.0-3.0); HEMATOCRIT 39.1 % (37.0-47.0); LYMPHOCYTES PERCENT AUTO 31.7 % (20.5-50.1); MEAN CORPUSCULAR HEMOGLOBIN 28.8 pg (27.0-34.0); MEAN CORPUSCULAR HGB CONC 33.2 g/dL (33.0-35.0); MEAN CORPUSCULAR VOLUME 86.5 fL (80-100); MONOCYTES PERCENT AUTO 10.4 % (2-8); NEUTROPHILS PERCENT AUTO 51.4 % (42.2-75.2); PLATELET COUNT,PLT 302 10^3/uL (150-450); RED BLOOD CELL COUNT 4.52 10^6/uL (4.2-5.4); WHITE BLOOD CELL COUNT,WBC 8.3 10^3/uL (5.0-10.0)
[2023-12-22] MEDS: Sodium Chloride 0.9% 10 ML Syringe FLUSH PRN (15:48)
[2023-12-22 16:15] LABS: INR 0.9 (0.9-1.2); PROTHROMBIN TIME 9.5 SEC (9.0-12.0)
[2023-12-22 16:20] LABS: B-TYPE NATRIURETIC PEPTIDE,BNP 8 pg/ml (0-100)
[2023-12-22 16:21] LABS: ALANINE AMINOTRANSFERASE,ALT 41 U/L (14-59); ALBUMIN 3.6 g/dL (3.4-5.0); ALKALINE PHOSPHATASE 83 U/L (46-116); ASPARTATE AMNIOTRANSFERASE,AST 23 U/L (15-37); BILIRUBIN TOTAL 0.2 mg/dL (0.2-1.0); BLOOD UREA NITROGEN,BUN 13 mg/dL (7-18); BUN/CREATININE RATIO 18.3 (No establ ref range); CARBON DIOXIDE,CO2 30 mmol/L (21-32); CHLORIDE,CL 102 mmol/L (98-107); CREATININE 0.71 mg/dL (0.55-1.02); EST CRCL DRUG DOSING (CG) 72.47 mL/min; GLUCOSE RANDOM 96 mg/dL (70-99); LIPASE 21 U/L (16-77); MAGNESIUM 1.8 mg/dL (1.8-2.4); PROTEIN TOTAL,TP 7.2 g/dL (6.4-8.2); SODIUM,NA 138 mmol/L (136-145); TSH ULTRASENSITIVE 2.33 uIU/mL (0.36-3.74)
[2023-12-22 16:30] LABS: ESTIMATED GFR 102 mL/min (>=60)
== END 2023-12-22 18:35 | disposition home or self-care (01) ==
LOC: DL.ED 13:28
DX: R07.89 Other chest pain (principal); Z88.8 Allergy status to other drugs, medicaments and biological substances; Z91.011 Allergy to milk products; Z91.030 Bee allergy status; Z90.49 Acquired absence of other specified parts of digestive tract; Z90.710 Acquired absence of both cervix and uterus; Z87.891 Personal history of nicotine dependence; Z79.899 Other long term (current) drug therapy
CPT/HCPCS: 36415; 71045; 80053; 83690; 83735; 83880; 84145; 84443; 84484; 85025; 85379; 85610; 93005; 93010; 99284; 99285; J3490